=== PATIENT | female | born 1995 ===

== ENCOUNTER 2016-12-28 09:30 | Emergency (ER) | payer OTHER ==
[2016-12-28] MEDS ORDERED: Ketorolac INJ* 30 MG/ML 1 ML VIAL IM ONE (10:41)
--- NOTE | 2016-12-28 11:01 | UC ---
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 to right mild thigh no bowel or bladder dysfunction - History of Current Complaint Chief Complaint: UCBackPain Stated Complaint: BACK INJURY Time Seen by Provider: 12/28/16 10:29 Hx Obtained From: Patient Hx Last Menstrual Period: 11/28/16 Onset/Duration: Sudden Onset, Lasting Hours Timing: Constant Severity Initially: Severe Severity Currently: Severe Pain Intensity: 10 Pain Scale Used: 0-10 Numeric Back Pain: Is Diffuse Character: Throbbing, Spasmodic, Stiffness Aggravating: Movement, Lifting, Bending, Walking Alleviating: Nothing Associated Signs And Symptoms: Positive: Negative - Allergies/Home Medications Allergies/Adverse Reactions: Allergies Allergy/AdvReac Type Severity Reaction Status Date / Time No Known Allergies Allergy Verified 12/28/16 09:37 PMH/Surg Hx/FS Hx/Imm Hx Previously Healthy: Yes - Surgical History Surgical History: None - Family History Known Family History: Positive: Hypertension Negative: Cardiac Disease, Diabetes - Social History Alcohol Use: Weekly Substance Use Type: None Smoking Status (MU): Never Smoked Tobacco Review of Systems Constitutional: Negative Skin: Negative Eyes: Negative ENT: Negative Respiratory: Negative Cardiovascular: Negative Gastrointestinal: Negative Genitourinary: Negative Motor: Negative Neurovascular: Negative Musculoskeletal: Myalgia Neurological: Negative Psychological: Negative All Other Systems Reviewed And Are Negative: Yes Physical Exam Triage Information Reviewed: Yes Appearance: Well-Appearing, Well-Nourished, Pain Distress Vital Signs: Initial Vital Signs Temp 98.5 F 12/28/16 09:38 Pulse 96 12/28/16 09:38 Resp 18 12/28/16 09:38 BP 105/68 12/28/16 09:38 Pulse Ox 100 12/28/16 09:38 Vital Signs Reviewed: Yes Eyes: Positive: Conjunctiva Clear ENT: Positive: Hearing grossly normal. Negative: Nasal congestion, Nasal drainage, Trismus, Muffled/hoarse voice Neck: Positive: Supple, Nontender, No Lymphadenopathy Respiratory: Positive: Chest non-tender, Lungs clear, Normal breath sounds, No respiratory distress, No accessory muscle use Cardiovascular: Positive: RRR, No Murmur. Negative: Tachycardia Musculoskeletal: Positive: ROM Intact, No Edema Neurological: Positive: Alert Psychological Exam: Normal Skin Exam: Normal Back Pain Course/Dx - Differential Dx/Diagnosis Provider Diagnoses: acute lumbar strain/spasm Discharge - Discharge Plan Condition: Stable Disposition: HOME Prescriptions: Cyclobenzaprine TAB* [Flexeril TAB*] 5 mg PO TID PRN #15 tab PRN Reason: Spasms Naproxen Sodium [Naproxen Sodium 500 MG TAB] 500 mg PO BID PRN #30 tab PRN Reason: Pain Patient Education Materials: Low Back Strain (ED) Referrals: Arnel Waller [Medical Doctor] - As Soon As Possible Additional Instructions: PT consult muscle relaxent will cause drowsiness Images Front/Back of Body, Lg ([place]): 1 - bilateral paraspinous muscle tenderness, decreased ROM, DTRs symetrical, toes down going, sensation intact
== END 2016-12-28 11:55 | disposition home or self-care (01) ==
LOC: UCEAST 09:30
DX: S39.012A Strain of muscle, fascia and tendon of lower back, initial encounter (principal); M62.830 Muscle spasm of back; X50.0XXA Overexertion from strenuous movement or load, initial encounter; Y93.9 Activity, unspecified; Y92.9 Unspecified place or not applicable; Y99.9 Unspecified external cause status
CPT/HCPCS: 96372; 99212; G0463; J1885

== ENCOUNTER 2018-04-30 20:33 | Emergency (ER) | payer OTHER ==
--- NOTE | 2018-04-30 20:56 | UC ---
Throat Pain/Nasal Isma HPI - HPI Summary HPI Summary: 22 yo female presents with multiple complaints. 1) She tells me that over the past week she has had a sore throat, sinus congestion, dry cough, and was vomiting for 2 days. All of these symptoms are now resolved and she is feeling better. 2) Yesterday she noticed swelling to her right lower eyelid with mild TTP. She did not injure the area or get anything into her eye. 3) For the last year she has had issues with yeast infections whenever she gets an illness. Most recently over the last 6-7 days she has developed vaginal itching and thick white discharge that is malodorous. She has tried OTC monistat with relief for about 7-10 days, but her symptoms almost always return. Currently she denies fever, chills, sinus symptoms, cough, SOB, chest pain, abdominal pain, n/v/d/c, dysuria. - History of Current Complaint Chief Complaint: UCEye Stated Complaint: EYE COMPLAINT Time Seen by Provider: 04/30/18 20:56 Hx Obtained From: Patient Hx Last Menstrual Period: 1 WEEK AGO Onset/Duration: Gradual Onset Severity: Severe Pain Intensity: 9 Pain Scale Used: 0-10 Numeric - Allergies/Home Medications Allergies/Adverse Reactions: Allergies Allergy/AdvReac Type Severity Reaction Status Date / Time No Known Allergies Allergy Verified 04/30/18 20:42 Home Medications: Home Medications D-Methorphan/PE/Acetaminophen [Vicks Dayquil Liquid] PRN 04/30/18 [History] Ibuprofen TAB* [Advil TAB*] PRN 04/30/18 [History] guaiFENesin ER TAB [Mucinex*] PRN 04/30/18 [History] PMH/Surg Hx/FS Hx/Imm Hx - Additional Past Medical History Additional PMH: None - Surgical History Surgical History: None - Family History Known Family History: Positive: Hypertension Negative: Cardiac Disease, Diabetes - Social History Lives: With Family Alcohol Use: Weekly Substance Use Type: None Smoking Status (MU): Never Smoked Tobacco Review of Systems All Other Systems Reviewed And Are Negative: Yes Constitutional: Positive: Negative Skin: Positive: Negative Eyes: Positive: Other - Right lower eyelid swelling and tenderness ENT: Positive: Negative Respiratory: Positive: Negative Cardiovascular: Positive: Negative Gastrointestinal: Positive: Negative Genitourinary: Positive: Vaginal/Penile Itching, Vaginal/Penile Discharge Motor: Positive: Negative Musculoskeletal: Positive: Negative Neurological: Positive: Negative Psychological: Positive: Negative Physical Exam - Summary Physical Exam Summary: GENERAL: NAD. WDWN. No pain distress. SKIN: No rashes, sores, or open wounds. HEENT: Head: AT/NC Eyes: PERRLA. EOM intact. RIGHT lower eyelid with stye and mild edema/erythema surrounding mid to lateral aspect of lower lid. Mild TTP. No drainage, scleral injection, or conjunctiva inflammation. Ears: Hearing grossly normal. TMs intact, no bulging, erythema, or edema. Nose: Nasal mucosa pink and moist. NTTP maxillary and frontal sinus. Throat: Posterior oropharynx with mild erythema. No exudates or tonsillar enlargement. Uvula midline. NECK: Supple. Nontender. No lymphadenopathy. CHEST: CTAB. No r/r/w. No accessory muscle use. Breathing comfortably and in no distress. CV: RRR. Without m/r/g. Pulses intact. Brisk cap refill. ABDOMEN: Soft. NTTP. No distention or guarding. Bowel sounds present NEURO: Alert. PSYCH: Age appropriate behavior. Triage Information Reviewed: Yes Vital Signs: Initial Vital Signs Temp 98.4 F 04/30/18 20:38 Pulse 77 04/30/18 20:38 Resp 16 04/30/18 20:38 BP 110/67 04/30/18 20:38 Pulse Ox 100 04/30/18 20:38 Laboratory Tests 04/30/18 21:12 Group A Strep Rapid Negative Vital Signs Reviewed: Yes Pelvic Exam: Positive: External Exam Normal, No Cerv. Motion Tender, No Masses, Discharge - Moderate amount of thick white, Other - malodorous. Assisted by Gina PERALTA. Negative: Active Bleeding, Lesions, Ulcers Throat Pain/Nasal Course/Dx - Course Course Of Treatment: POC strep negative. Suspect right eye stye and vaginal yeast infection with possible BV. She was provided with erythromycin ointment for the stye and given 150mg Diflucan in the clinic for her yeast infection. She elected to wait for the BV culture to return before starting treatment. Cultures were also obtained for trich, gonorrhea, and chlamydia. - Differential Dx/Diagnosis Provider Diagnoses: Right eye stye. Vaginal yeast infection. Pharyngitis Discharge - Sign-Out/Discharge Documenting (check all that apply): Patient Departure All imaging exams completed and their final reports reviewed: No Studies - Discharge Plan Condition: Stable Disposition: HOME Prescriptions: Fluconazole 150 MG (NF) [Diflucan 150 mg (NF)] 150 mg PO ONCE #1 tab Patient Education Materials: Stye (ED), Yeast Infection (ED) Referrals: No Primary Care Phys,NOPCP [Primary Care Provider] - Additional Instructions: If you develop a fever, shortness of breath, chest pain, new or worsening symptoms - please call your PCP or go to the ED. 1) Apply a warm cloth/compress to your right eye to reduce pain and swelling 2) If your yeast symptoms have not fully resolved in 3 days - you may take the Diflucan sent to the pharmacy for you - Billing Disposition and Condition Condition: STABLE Disposition: Home
[2018-04-30] MEDS ORDERED: Erythromycin OPTH OINT* APPLIC OINT RIGHT EYE ONE (21:08)
[2018-04-30] MEDS ORDERED: Fluconazole 100 MG TAB* TAB PO ONE (21:28)
--- NOTE | 2018-05-06 15:27 | UC ---
- Progress Note Progress Note: Pt's cultures returned negative yeast negative BV negative GC/C and trich On exam there was a strong suspicion for yeast and/or BV. Please call pt and if her symptoms have not improved to be rechecked by her PCP. Course/Dx - Diagnoses Provider Diagnoses: Vaginal discharge Discharge - Sign-Out/Discharge Documenting (check all that apply): Post-Discharge Follow Up All imaging exams completed and their final reports reviewed: No Studies - Discharge Plan Condition: Stable Disposition: HOME Prescriptions: Fluconazole 150 MG (NF) [Diflucan 150 mg (NF)] 150 mg PO ONCE #1 tab Patient Education Materials: Stye (ED), Yeast Infection (ED) Referrals: No Primary Care Phys,NOPCP [Primary Care Provider] - Additional Instructions: If you develop a fever, shortness of breath, chest pain, new or worsening symptoms - please call your PCP or go to the ED. 1) Apply a warm cloth/compress to your right eye to reduce pain and swelling 2) If your yeast symptoms have not fully resolved in 3 days - you may take the Diflucan sent to the pharmacy for you - Billing Disposition and Condition Condition: STABLE Disposition: Home
== END 2018-04-30 21:45 | disposition home or self-care (01) ==
LOC: UCEAST 20:33
DX: J02.9 Acute pharyngitis, unspecified (principal); B37.3 Candidiasis of vulva and vagina; H00.012 Hordeolum externum right lower eyelid
CPT/HCPCS: 87480; 87491; 87510; 87591; 87651; 87661; 99213; A9270-GY; G0463

== ENCOUNTER 2018-12-06 00:44 | Emergency (ER) | payer OTHER ==
--- NOTE | 2018-12-06 01:56 | ED ---
Head Injury - HPI Summary HPI Summary: This pt is a 23 y/[facility] s/p head strike around 23:00 on 12/05/18. 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 She notes there was a mini fridge on the ground and she hit the back of her head on a mini fridge. Denies LOC. Pt describes head pressure as "having a big brain." Denies nausea, vomiting, blurry vision, visual changes, neck pain. Per boyfriend, pt seems anxious. She notes she has had an episode of syncope in the past. Pt does not take any medications. Denies hx of bleeding or clotting disorders. LMP: November 18-. Denies chance of . - History Of Current Complaint Chief Complaint: EDHeadInjury Stated Complaint: HIT HEAD A FEW HOURS AGO/PRESSURE PER PT Time Seen by Provider: 12/06/18 01:47 Hx Obtained From: Patient Hx Last Menstrual Period: 1 WEEK AGO Mechanism Of Injury: Fall From A Standing Position Onset/Duration: Started Hours Ago, Traumatic, Still Present Onset of Pain: Immediate Severity Initially: Moderate Pain Intensity: 6 Pain Scale Used: 0-10 Numeric Location: Diffuse Character: Pressure Aggravating Factor(s): Other: - nothing Alleviating Factor(s): Other: - nothing Associated Signs And Symptoms: Headache, Other: - NEGATIVE: nausea, vomiting, blurry vision, visual changes, neck pain, LOC, syncope - Allergies/Home Medications Allergies/Adverse Reactions: Allergies Allergy/AdvReac Type Severity Reaction Status Date / Time No Known Allergies Allergy Verified 04/30/18 20:42 Home Medications: Home Medications NK [No Home Medications Reported] 12/06/18 [History Confirmed 12/06/18] PMH/Surg Hx/FS Hx/Imm Hx Respiratory History: Denies: Hx Asthma Neurological History: Denies: Hx Seizures Infectious Disease History: No Infectious Disease History: Denies: Traveled Outside the [place] in Last 30 Days - Family History Known Family History: Positive: Hypertension Negative: Cardiac Disease, Diabetes - Social History Alcohol Use: Occasionally Substance Use Type: Reports: None Smoking Status (MU): Never Smoked Tobacco Review of Systems Negative: Fever Negative: Blurred Vision, Other - visual changes Negative: Vomiting, Nausea Negative: Other - neck pain Neurological: Other - NEGATIVE: LOC Positive: Headache - pressure in head. Negative: Syncope All Other Systems Reviewed And Are Negative: Yes Physical Exam - Summary Physical Exam Summary: Appearance: Well-appearing, Well-nourished, lying in bed comfortably Skin: Warm, dry, no obvious rash Eyes: sclera anicteric, no conjunctival pallor ENT: mucous membranes moist, pharynx appears normal Neck: Supple, nontender Respiratory: Clear to auscultation, no signs of respiratory distress Cardiovascular: Normal S1, S2. No murmurs. Normal distal pulses in tibial and radial bilaterally. Abdomen: Soft, nontender, normal active bowel sounds present Musculoskeletal: Normal, Strength/ROM Intact, Motor function in all 4 extremities is normal and symmetric. There is no rigidity or tremor noted. Neurological: A&Ox3, awake and alert, mentation is normal, speech is fluent and appropriate, Level of consciousness nml. The patient is alert and oriented. Cranial nerves are grossly intact. Gaze is conjugate and without nystagmus. Peripheral vision is intact to confrontation. There are no gross sensory abnormalities to light touch. There is no truncal or fine motor ataxia. Gait is normal. Psychiatric: affect is normal, does not appear anxious or depressed Triage Information Reviewed: Yes Vital Signs On Initial Exam: Initial Vitals Temp Pulse Resp BP Pulse Ox 98.3 F 65 16 124/84 97 12/06/18 00:47 12/06/18 00:47 12/06/18 00:47 12/06/18 00:47 12/06/18 00:47 Vital Signs Reviewed: Yes Diagnostics - Vital Signs Vital Signs Temp Pulse Resp BP Pulse Ox 12/06/18 01:28 98.0 F 58 18 116/70 12/06/18 00:47 98.3 F 65 16 124/84 97 - Laboratory Lab Statement: Any lab studies that have been ordered have been reviewed, and results considered in the medical decision making process. Head Injury Course/Dx Assessment/Plan: Pt is a 23 y/o female presenting to [facility] c/o head pressure s/ p head strike around 23:00 on 12/05/18. 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 She notes there was a mini fridge on the ground and she hit the back of her head on a mini fridge. Denies LOC. Pt describes head pressure as "having a big brain.". Pt has a normal neurological exam. Pt has a steady gait. She was discharged home with follow up from her PCP if needed. Pt was instructed to return to the ED for any worsening or new symptoms. - Diagnoses Provider Diagnoses: Head injury Discharge - Sign-Out/Discharge Documenting (check all that apply): Patient Departure - Discharged home Patient Received Moderate/Deep Sedation with Procedure: No - Discharge Plan Condition: Good Disposition: HOME Patient Education Materials: Head Injury (ED) Referrals: [facility] [Outside] - If Needed - Billing Disposition and Condition Condition: GOOD Disposition: Home - Attestation Statements Document Initiated by Timibmckenzie: Yes Documenting Scribe: Elisabeth Falcon Provider For Whom Bob is Documenting (Include Credential): Sigifredo Bustillos MD Scribmckenzie Attestation: Elisabeth Wisdom scribed for Sigifredo Bustillos MD on 12/06/18 at 0714. Scribe Documentation Reviewed: Yes Provider Attestation: The documentation as recorded by the Elisabeth ignacio accurately reflects the service I personally performed and the decisions made by Sigifredo ivey MD Status of Scribe Document: Viewed
[2018-12-06 02:04] VITALS: BP 0/0
== END 2018-12-06 02:03 | disposition home or self-care (01) ==
LOC: ED 00:44
DX: S09.90XA Unspecified injury of head, initial encounter (principal); W22.8XXA Striking against or struck by other objects, initial encounter
CPT/HCPCS: 99282

== ENCOUNTER 2019-05-11 18:59 | Emergency (ER) | payer OTHER ==
[2019-05-11] MEDS ORDERED: NS 0.9% 1000 ML** 1,000 ML IV ONE ×2 (19:33→22:03)
[2019-05-11] MEDS ORDERED: Ondansetron INJ* 2 MG/ML VIAL IV ONE ×2 (19:33→22:08)
[2019-05-11] MEDS ORDERED: Pantoprazole IV* 40 MG IV ONE (20:26)
--- NOTE | 2019-05-11 20:27 | ED ---
GI/ HPI - HPI Summary HPI Summary: Patient is a 23 y/o F presenting to [facility] with complaints of N/V/D, upper abdominal pain, and chills. She reports that abdominal pain onset two days ago. Today, 05/11/19, at around 1730, patient had sudden onset of vomiting. Multiple episodes of emesis are noted. She states that she continued to retch after these episodes and also experience onset of multiple episodes of diarrhea. Patient characterizes her diarrhea as a liquid. On triage, pain is rated 9/10. Nothing is noted to aggravate/alleviate Sx. No sick contacts are noted. She notes that she had been on a week-long antibiotic for a throat infection several days ago. Patient denies any other medical history. LNMP finished last week. NKDA reported. Patient denies tobacco and substance usage but endorses alcohol consumption, noting that she had two glasses of champagne yesterday and a cider drink today. Home medications and allergies are reviewed. 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 - History of Current Complaint Chief Complaint: EDNauseaVomitDiarrh Time Seen by Provider: 05/11/19 19:32 Stated Complaint: VOMITING PER PT Hx Obtained From: Patient Hx Last Menstrual Period: 1 WEEK AGO Onset/Duration: Started Hours Ago, Started Days Ago Timing: Lasting Hours, Lasting Days Severity: Severe Current Severity: Severe Pain Intensity: 9 Location of Pain: Other - upper abdomen Associated Signs and Symptoms: Positive: Nausea, Vomiting, Diarrhea, Chills, Abdominal Pain Aggravating Factor(s): Nothing Alleviating Factor(s): Nothing - Allergy/Home Medications Allergies/Adverse Reactions: Allergies Allergy/AdvReac Type Severity Reaction Status Date / Time No Known Allergies Allergy Verified 05/11/19 19:13 PMH/Surg Hx/FS Hx/Imm Hx Respiratory History: Denies: Hx Asthma Neurological History: Denies: Hx Seizures Infectious Disease History: No Infectious Disease History: Denies: Traveled Outside the [place] in Last 30 Days - Family History Known Family History: Positive: Hypertension Negative: Cardiac Disease, Diabetes - Social History Alcohol Use: Occasionally Substance Use Type: Reports: None Smoking Status (MU): Never Smoked Tobacco Review of Systems Positive: Chills Positive: Abdominal Pain, Vomiting, Diarrhea, Nausea All Other Systems Reviewed And Are Negative: Yes Physical Exam - Summary Physical Exam Summary: General: Well-developed, Well-nourished Female. No acute distress. HEENT: Normocephalic, Atraumatic. Eyes: Conjuctiva normal, PERRL. Ears: TMs within normal limits. Nares: (-) discharge, (-) erythema. Oropharynx: Clear, mucous membranes dry, (-) exudates. Neck: Soft, FROM, (-) lymphadenopathy, (-) thyromegaly, (-) JVD. Cardiovascular: Normal sinus rhythm, (-) murmur. Lungs: Clear to auscultation bilaterally (-) wheezes, (-) rales, (-) rhonchi. Abdomen: Mild epigastric tenderness is noted; abdomen is soft, non-distended, (- ) organomegaly, normal bowel sounds. Back: (-) CVA tenderness Extremities: No edema. Skin: Warm, dry, (-) rash. Neuro: Alert and oriented x3, no focal deficits. Psychiatric: Mood normal, affect normal. Triage Information Reviewed: Yes Vital Signs On Initial Exam: Initial Vitals Temp Pulse Resp BP Pulse Ox 98.2 F 145 18 91/71 99 05/11/19 19:11 05/11/19 19:11 05/11/19 19:11 05/11/19 19:11 05/11/19 19:11 Vital Signs Reviewed: Yes Procedures - Sedation Patient Received Moderate/Deep Sedation with Procedure: No Diagnostics - Vital Signs Vital Signs Temp Pulse Resp BP Pulse Ox 05/11/19 19:11 98.2 F 145 18 91/71 99 - Laboratory Result Diagrams: 05/11/19 21:25 05/11/19 21:25 Lab Statement: Any lab studies that have been ordered have been reviewed, and results considered in the medical decision making process. GIGU Course/Dx - Course Course Of Treatment: 23 year old female presents with vomiting and diarrhea. patient received fluids, protonix 40 mg IV, Motrin 400 mg PO and Zofran 4 mg IV x2. workup essentially negative although nondiagnostic. discharged home with zofran, advised clear fluids. follow up with PCP. follow up sooner for any worsening symptoms - Diagnoses Provider Diagnoses: Vomiting, Diarrhea Discharge ED - Sign-Out/Discharge Documenting (check all that apply): Patient Departure - discharge - Discharge Plan Condition: Stable Disposition: HOME Patient Education Materials: Acute Nausea and Vomiting (ED), Acute Diarrhea (ED ) Referrals: [facility] [Outside] - 3 Days Additional Instructions: PLEASE RETURN TO ED FOR ANY NEW OR CONCERNING SYMPTOMS. PLEASE FOLLOW UP WITH YOUR PRIMARY CARE PHYSICIAN WITHIN THREE DAYS. - Billing Disposition and Condition Condition: STABLE Disposition: Home - Attestation Statements Document Initiated by Timibe: Yes Documenting Scribe: ISABEL VARGAS Provider For Whom Scribe is Documenting (Include Credential): NICO DIALLO MD Scribe Attestation: I, ISABEL VARGAS, scribed for NICO DIALLO MD on 05/12/19 at 0319. Scribe Documentation Reviewed: Yes Provider Attestation: The documentation as recorded by the ISABEL ignacio accurately reflects the service I personally performed and the decisions made by me, NICO DIALLO MD Status of Scribe Document: Viewed
[2019-05-11 21:36] LABS: ABS Eosinophils 0.1 10^3/ul (0-0.6); ABS Lymphocytes 0.3 10^3/ul (1.0-4.8); ABS Monocytes 0.6 10^3/ul (0-0.8); ABS Neutrophils 9.6 10^3/ul (1.5-7.7); Eosinophil % 0.9 %; Hematocrit 41 % (35-47); Hemoglobin 13.9 g/dL (12.0-16.0); Lymphocyte % 2.8 %; Mean Corpuscular HGB Conc 34 g/dL (31-36); Mean Corpuscular Hemoglobin 30 pg (27-31); Mean Corpuscular Volume 91 fL (80-97); Mean Platelet Volume 7.7 fL (7.4-10.4); Nucleated Red Blood Cells % 0.1; Platelet Count 287 10^3/uL (150-450); Red Blood Count 4.55 10^6 /uL (3.70-4.87); Red Cell Distribution Width 14 % (10-15); White Blood Count 10.7 10^3/uL (3.5-10.8)
[2019-05-11 21:42] LABS: INR 1.05 (0.82-1.09)
[2019-05-11 21:56] LABS: ALT 11 U/L (7-52); AST 17 U/L (13-39); Albumin 4.2 g/dL (3.2-5.2); Albumin/Globulin Ratio 1.6 (1-3); Alkaline Phosphatase 38 U/L (34-104); Anion Gap 12 mmol/L (2-11); Blood Urea Nitrogen 16 mg/dL (6-24); C Reactive Protein 3.64 mg/L (<8.01); CO2 Carbon Dioxide 19 mmol/L (22-32); Calcium 8.8 mg/dL (8.6-10.3); Chloride 109 mmol/L (101-111); EGFR African American 101.7 (>60); Globulin 2.7 g/dL (2-4); Glucose 103 mg/dL (70-100); Sodium 140 mmol/L (135-145); Total Protein 6.9 g/dL (6.4-8.9)
[2019-05-11 22:01] LABS: HCG Pregnancy < 0.60 mIU/mL
[2019-05-11 22:24] LABS: Urine Appearance Cloudy; Urine Bilirubin Negative (Negative); Urine Blood Negative (Negative); Urine Color Amber; Urine Glucose Negative (Negative); Urine Ketones 2+ (Negative); Urine Nitrite Negative (Negative); Urine Protein 1+(30 mg/dL) (Negative); Urine Specific Gravity 1.027 (1.010-1.030); Urine Urobilinogen Negative (Negative)
[2019-05-11 22:30] LABS: HIV 4th Generation Nonreactive (Nonreactive)
[2019-05-11 22:37] LABS: Urine Bacteria 1+ (Absent); Urine Red Blood Cell 3+(>10/hpf) (Absent); Urine Squamous Epithelial Cell Present (Absent); Urine White Blood Cell Trace(0-5/hpf) (Absent)
[2019-05-11] MEDS ORDERED: O ndansetron ODT 4MG 5TAB PRPK 4 MG PAK PO ONE (23:12)
[2019-05-11] MEDS ORDERED: Ondansetron ODT TAB* 4 MG PO ONE (23:30)
[2019-05-11] MEDS ORDERED: Ibuprofen TAB* 400 MG PO ONE (23:37)
[2019-05-11 23:47] VITALS: BP 113/62
== END 2019-05-11 23:45 | disposition home or self-care (01) ==
LOC: ED 18:59
DX: R11.10 Vomiting, unspecified (principal); R19.7 Diarrhea, unspecified
CPT/HCPCS: 36415; 80053; 81003; 81015; 83605; 83690; 84702; 85025; 85610; 86140; 87040; 87086; 87389; 96361; 96374; 96375; 96376; 99282; A9270-GY; J2405